=== PATIENT | female | born 1945 | race Two or more races ===

== ENCOUNTER 2018-02-17 09:41 | Day surgery (SDC) | payer MEDICARE, OTHER, MEDICAID ==
[2018-02-17] MEDS ORDERED: PROPOFOL 40 ML (10:31)
== END 2018-02-17 11:32 | disposition home or self-care (01) ==
LOC: GIL 09:41
DX: R19.4 Change in bowel habit (principal); K57.90 Diverticulosis of intestine, part unspecified, without perforation or abscess without bleeding; K64.8 Other hemorrhoids; I10 Essential (primary) hypertension; E78.5 Hyperlipidemia, unspecified
CPT/HCPCS: 45378